=== PATIENT | female | born 2000 | race African-American/Black ===

== ENCOUNTER 2022-08-24 23:40 | Day surgery (SDC) | payer OTHER ==
[2022-08-25] MEDS ORDERED: hydrALAZINE 20 MG/ML VIAL SLOW IVP PRN (00:57)
[2022-08-25 01:26] VITALS: BMI 41.1
== END 2022-08-25 01:50 | disposition home or self-care (01) ==
LOC: CSHLD/OP 23:40
PROVIDERS: ATTEND Obstetrics & Gynecology
DX: O21.0 Mild hyperemesis gravidarum (principal); O47.02 False labor before 37 completed weeks of gestation, second trimester; O99.012 Anemia complicating pregnancy, second trimester; D64.9 Anemia, unspecified; O99.891 Other specified diseases and conditions complicating pregnancy; R03.0 Elevated blood-pressure reading, without diagnosis of hypertension; O99.212 Obesity complicating pregnancy, second trimester; E66.9 Obesity, unspecified; O99.512 Diseases of the respiratory system complicating pregnancy, second trimester; J45.20 Mild intermittent asthma, uncomplicated; Z87.19 Personal history of other diseases of the digestive system; Z79.899 Other long term (current) drug therapy; Z3A.19 19 weeks gestation of pregnancy
CPT/HCPCS: 99282